=== PATIENT | female | born 2000 | race Caucasian/White ===

== ENCOUNTER 2019-08-15 18:26 | Emergency (ER) | payer OTHER ==
[~2019-08-15] VITALS: Ht 154 cm; Wt 53.8 kg
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
[2019-08-15] MEDS ORDERED: LIDOCAINE 1% INJ 20 ML 20 ML VIAL ONE (19:31)
[2019-08-15 19:49] VITALS: BP 114/79
== END 2019-08-15 19:45 | disposition home or self-care (01) ==
LOC: ER 18:29
DX: S01.112A Laceration without foreign body of left eyelid and periocular area, initial encounter (principal); W51.XXXA Accidental striking against or bumped into by another person, initial encounter; Y93.45 Activity, cheerleading
CPT/HCPCS: 12011

== ENCOUNTER 2019-08-23 12:11 | Emergency (ER) | payer OTHER ==
[~2019-08-23] VITALS: Ht 154 cm; Wt 53.6 kg
[2019-08-23 12:40] VITALS: BP 116/83
== END 2019-08-23 12:40 | disposition home or self-care (01) ==
LOC: EDUNIT# 12:11 → ER 12:12
DX: S01.112D Laceration without foreign body of left eyelid and periocular area, subsequent encounter (principal); X58.XXXD Exposure to other specified factors, subsequent encounter